=== PATIENT | male | born 1970 | race Two or more races ===

== ENCOUNTER 2017-12-11 04:11 | Emergency (ER) | payer SELFPAY ==
--- NOTE | 2017-12-11 04:36 | ED PDOC ---
HPI: Psych/Substance Abuse Time Seen by Provider: 12/11/17 04:17 Chief Complaint (Nursing): Alcohol Ingestion Chief Complaint (Provider): alcohol ingestion ED Caveat: Intoxicated History Per: Patient History/Exam Limitations: intoxication Onset/Duration Of Symptoms: Hrs (today) Current Symptoms Are (Timing): Still Present Additional Complaint(s): Jaspal Woodard is a 47 year old male, with no significant past medical history, who was brought to the emergency department by EMS after patient was found intoxicated. Patient states he drank x20 cool beers. He denies any drug use or injuries. History limited due to alcohol intoxication. PMD: None provided. Past Medical History Reviewed: Historical Data, Nursing Documentation, Vital Signs, Unable To Obtain Vital Signs: Last Vital Signs Temp 97.5 F L 12/11/17 04:29 Pulse 88 12/11/17 04:29 Resp 16 12/11/17 04:29 BP 119/83 12/11/17 04:29 Pulse Ox 98 12/11/17 04:29 - Family History Family History: States: Unknown Family Hx - Social History Current smoker - smoking cessation education provided: No Alcohol: Social Drugs: Denies - Allergies Allergies/Adverse Reactions: Allergies Allergy/AdvReac Type Severity Reaction Status Date / Time No Known Allergies Allergy Verified 12/11/17 04:31 Review of Systems Review Of Systems: ROS cannot be obtained secondary to pt's inabilty to answer questions. Physical Exam - Reviewed Nursing Documentation Reviewed: Yes Vital Signs Reviewed: Yes - Physical Exam Appears: Negative for: Well (intoxicated ) Head Exam: Positive for: ATRAUMATIC (No signs of trauma), NORMAL INSPECTION, NORMOCEPHALIC Skin: Positive for: Normal Color, Warm, Dry Eye Exam: Positive for: Normal appearance, EOMI, PERRL Neck: Positive for: Painless ROM Cardiovascular/Chest: Positive for: Regular Rate, Rhythm. Negative for: Murmur Respiratory: Positive for: Normal Breath Sounds. Negative for: Respiratory Distress Gastrointestinal/Abdominal: Positive for: Normal Exam, Soft. Negative for: Tenderness Extremity: Positive for: Normal ROM (upper and lower extremities). Negative for : Deformity Neurologic/Psych: Positive for: Alert. Negative for: Oriented - ECG O2 Sat by Pulse Oximetry: 98 (RA) Pulse Ox Interpretation: Normal Medical Decision Making Medical Decision Making: Time: 04:17 A/P: 47 y/o male with alcohol intoxication. Will monitor until clinically sober Initial Plan: --Alcohol serum --Glucose, POC routine --Accucheck --Reevaluation [address] Cooper pending sobriety ----- Scribe Attestation: Documented by Steve Cisneros, acting as a scribe for Bello Cates MD. Provider Scribe Attestation: All medical record entries made by the Scribe were at my direction and personally dictated by me. I have reviewed the chart and agree that the record accurately reflects my personal performance of the history, physical exam, medical decision making, and the department course for this patient. I have also personally directed, reviewed, and agree with the discharge instructions and disposition. Disposition - Clinical Impression Clinical Impression: Alcohol abuse - Patient ED Disposition Is Patient to be Admitted: Transfer of Care - Disposition Disposition: Transfer of Care Disposition Time: 07:00 Condition: STABLE Forms: [facility] (Cypriot) Patient Signed Over To: Segun Cooper Handoff Comments: pending sobriety
--- NOTE | 2017-12-11 07:51 | ED PDOC ---
- ECG O2 Sat by Pulse Oximetry: 99 - Progress Re-evaluation Time: 07:50 Condition: Improved (Awake alert oriented No focal neuro deficits) Disposition - Clinical Impression Clinical Impression: Alcohol abuse - POA Present On Arrival: None - Disposition Referrals: [facility] [place] [Outside] Disposition: Routine/Home Disposition Time: 07:51 Condition: FAIR Instructions: Alcohol Abuse and Alcoholism (DC) Forms: [facility] (Yakut) Print Language: BOLIVIAN
[2017-12-11 09:15] VITALS: BP 122/71; PULSE 81; RESP 17; TEMP 98.3; O2SAT 100
== END 2017-12-11 09:14 | disposition home or self-care (01) ==
LOC: H.ER 04:11
DX: F10.129 Alcohol abuse with intoxication, unspecified (principal); Y90.7 Blood alcohol level of 200-239 mg/100 ml
CPT/HCPCS: 82948; 99283; G0480